=== PATIENT | male | born 1980 | race Caucasian/White ===

== ENCOUNTER 2020-04-22 07:15 | Day surgery (SDC) | payer OTHER ==
[~2020-04-22] VITALS: Ht 182.9 cm; Wt 98.0 kg
[2020-04-22 07:17] VITALS: BP 127/81
[2020-04-22 12:52] VITALS: BP 145/87
== END 2020-04-22 12:45 ==
LOC: DS 07:15 → GI 10:00 → OR 11:00 → DS 11:00
PROVIDERS: ATTEND Internal Medicine Gastroenterology
DX: Z12.11 Encounter for screening for malignant neoplasm of colon (principal); Z80.0 Family history of malignant neoplasm of digestive organs
CPT/HCPCS: 45378; J1200; J1610; J2250; J2310; J3010; J3490